=== PATIENT | female | born 1995 | race African-American/Black ===

== ENCOUNTER 2022-10-15 02:25 | Emergency (ER) | payer OTHER ==
[~2022-10-15] VITALS: Ht 175.3 cm; Wt 81.8 kg
[2022-10-15] MEDS ORDERED: IPRATROPIUM BROMIDE 0.5 MG/2.5 ML NEB SOLUTION NEB ONE (03:15)
[2022-10-15] MEDS ORDERED: PredniSONE 20 MG TABLET PO ONE (03:15)
[2022-10-15] MEDS ORDERED: ALBUTEROL SULFATE 2.5 MG/0.5 ML NEB SOLUTION NEB ONE (03:15)
[2022-10-15] MEDS ORDERED: PRED-554 PO (05:03)
[2022-10-15] MEDS ORDERED: ALBU8HFA IH (05:04)
[2022-10-15 05:19] VITALS: BP 120/68
== END 2022-10-15 05:22 | disposition home or self-care (01) ==
LOC: EMS 02:27
DX: J45.909 Unspecified asthma, uncomplicated (principal); F12.90 Cannabis use, unspecified, uncomplicated
CPT/HCPCS: 99284; 71045; 84703; 36415; 94640; J7512; J7613